=== PATIENT | female | born 1985 | race Caucasian/White ===

== ENCOUNTER 2017-04-16 04:24 | Inpatient (IN) | payer MEDICAID ==
[~2017-04-16] VITALS: Ht 160 cm; Wt 58.1 kg
[~2017-04-16 04:24] MED LIST: PREN1TAB49 PO
[2017-04-16 04:41] VITALS: BP 120/67; PULSE 100; RESP 18; Ht 160 cm; Wt 58.1 kg
[2017-04-16] MEDS ORDERED: FER325 PO (04:43)
[2017-04-16] MEDS ORDERED: AMPICILLIN 2 GM/NS (PMX) 100 ML IV ONE (05:00)
[2017-04-16] MEDS ORDERED: LIDOCAINE 1% (MPF) 30 ML INJ INJ PRN (05:00)
[2017-04-16] MEDS ORDERED: LACTATED RINGER'S 1,000 ML IV PRN (05:00)
[2017-04-16] MEDS ORDERED: METHYLERGONOVINE 0.2 MG INJ IM PRN ×2 (05:00→11:00)
[2017-04-16] MEDS ORDERED: OXYTOCIN 30 UNITS/LR 500 ML IV SCH (05:00)
[2017-04-16] MEDS ORDERED: BUTORPHANOL 2 MG INJ IV PRN (05:00)
[2017-04-16] MEDS ORDERED: MISOPROSTOL 200 MCG TAB PR PRN ×2 (05:00→11:00)
[2017-04-16] MEDS ORDERED: CARBOPROST 250 MCG INJ IM PRN ×2 (05:00→11:00)
[2017-04-16] MEDS ORDERED: MINERAL OIL LIGHT 10 ML VIAL TOP ONE (05:00)
[2017-04-16] MEDS ORDERED: OXYTOCIN 30 UNITS/LR 500 ML IV PRN ×2 (05:00→11:00)
--- NOTE | 2017-04-16 05:18 | TRIAGE ---
OB Triage Datetime Report Generated by CPN: 04/16/2017 05:18 Datetime: 04/16/2017 04:54 Labor Evaluation Frequency: 2.5-4 Monitor Mode: External Duration (sec)2399: 80-150 Quality: Moderate Pattern: Normal: <= 5 Contractions in 10 Minutes Resting Tone [place]: Relaxed Heart Rate FHR Baseline Rate: 140 Monitor Mode: External US FHR Baseline Changes: No Baseline Change Variability: Moderate 6-25 bpm Accelerations: 15X15 Decelerations: Early Category: Category I Pain Assessment Pain Scale: 5 Pain Presence: Intermittent Pain Type: Contraction Pain Location: Abdomen Pain Relief Measures: Comfort Measures Datetime: 04/16/2017 04:48 Vaginal Exam Dilatation (cms): 7.0 Effacement (%): 90 Station: -2 Membrane Status: Bulging Datetime: 04/16/2017 04:39 Assessment Type: Triage Maternal Assessment Level of Consciousness: Fully Conscious DTR's/Clonus: DTRs 2+; No Clonus Headache: Denies Blurred Vision: No Respiratory Effort: Unlabored; Regular Rhythm; Equal Expansion Breath Sounds, Left: Clear and Equal Breath Sounds, Right: Clear and Equal Nausea/Vomiting: Denies RUQ Epigastric Pain: Denies Facial Edema: None Fall Risk Assessment History of Falling: (0) No Secondary Diagnosis: (0) No Ambulatory Aid: (0) Bedrest/Nurse Assist IV Therapy: (0) No Gait: (0) Normal/Bedrest/Immobile Mental Status: (0) Oriented to Own Ability Fall Score: 0 Fall Risk Score Definition: No Risk: No action required Datetime: 04/16/2017 04:37 EGA: 38.3 Datetime: 04/16/2017 04:34 Time of Arrival: 04/16/2017 04:17 Arrived By: Wheelchair Arrived From: Home Chief Complaint: UC'S, BLEEDING Movement: Present Contractions: Regular Time Contractions Began: 04/16/2017 02:00 Contractions: Q10 Rupture of Membranes: Denies Vaginal Bleeding: Small Vaginal Discharge: Denies Recent Sexual Intercouse: Denies Abdominal Trauma: Not Applicable Patient Complaints: Contractions; Other Time Provider Notified: 04/16/2017 05:10 Provider Notified: REICHE Initial Plan: VS, EFM, SVE Datetime: 04/16/2017 04:25 Stage of : OB Triage
[2017-04-16 05:25] LABS: ADD SCAN DIFF NO
[2017-04-16 05:31] LABS: BASOPHIL # 0.1 10^3/ul (0.0-0.1); BASOPHILS % 0.4 % (0.0-2.0); EOSINOPHILS # 0.1 10^3/ul (0.0-0.5); EOSINOPHILS % 0.3 % (0.0-7.0); HEMATOCRIT 27.9 % (37.0-47.0); HEMOGLOBIN 8.6 g/dl (12.0-16.0); LYMPHOCYTES # 2.4 10^3/ul (0.8-2.9); LYMPHOCYTES % 15.4 % (15.0-51.0); MEAN CORPUSCULAR HEMOGLOBIN 21.1 pg (29.0-33.0); MEAN CORPUSCULAR HGB CONC 30.8 g/dl (32.0-37.0); MEAN CORPUSCULAR VOLUME 68.4 fl (82.0-101.0); MEAN PLATELET VOLUME 9.6 fl (7.4-10.4); MONOCYTE # 1.1 10^3/ul (0.3-0.9); MONOCYTES % 6.8 % (0.0-11.0); NEUTROPHIL # 11.4 10^3/ul (1.6-7.5); NEUTROPHILS % 73.8 % (39.0-77.0); NUCLEATED RED BLOOD CELLS% 0.3 /100WBC (0.0-0.0); PLATELET COUNT 449 10^3/UL (140-415); RED BLOOD COUNT 4.08 10^6/ul (4.20-5.40); RED CELL DISTRIBUTION WIDTH 17.5 % (11.5-14.5); WHITE BLOOD COUNT 15.5 10^3/ul (4.8-10.8)
[2017-04-16] MEDS: LACTATED RINGER'S 1,000 ML IV SCH ×2 (05:38→07:35)
[2017-04-16 05:43] LABS: INR 0.98
[2017-04-16 07:26] LABS: BARBITURATES Negative (NEGATIVE); BENZODIAZEPINES Negative (NEGATIVE); CANNABINOIDS Negative (NEGATIVE); COCAINE Negative (NEGATIVE); OPIATES Negative (NEGATIVE)
[2017-04-16] MEDS ORDERED: FENTAnyl 2MCG/ML-ROPIV 0.2% 100 ML ONE (07:51)
[2017-04-16] MEDS ORDERED: AMPICILLIN 1 GM/NS (PMX) 50 ML IV SCH (09:00)
[2017-04-16] MEDS: OXYTOCIN 30 UNITS/LR 500 ML IV SCH ×4 (10:13→14:49)
[2017-04-16] MEDS ORDERED: LACTATED RINGER'S 1,000 ML IV* SCH (10:49)
--- NOTE | 2017-04-16 10:55 | LDN ---
Date/Time of Note Date/Time of Note DATE: 04/16/17 TIME: 10:52 Delivery Summary of a viable baby boy weighing 3535 grams or 7# 13 oz, 20" long and with Apgars of 9/9. Weeks of Gestation 38w 3d Placenta Delivered: Spontaneously Meconium: none Episiotomy: No Laceration repair: Several small very superficial vaginal lacerations stitched with 2-0 chromic for hemostasis. Anesthesia type: Epidural Estimated blood loss: 250 Sponge & Needle done & correct: Yes All needle counts correct: Yes Any foreign bodies felt in the: No (vagina) Problems: Delivery Information Sex Infant Sex: male Apgars 1 Minute: 9 5 Minute: 9 Suctioning Nose & mouth suctioned at liu: Yes Delee suction performed: No Umbilical Cord Umbilical cord with: 3 Vessels Cord Blood was obtained: Yes Mother & Baby Disposition Disposition Mom & Baby to Maternity; Good: Yes Baby to NICU: No ELLEN IGLESIAS MD Apr 16, 2017 10:55
[2017-04-16] MEDS ORDERED: FENTAnyl 2MCG/ML-ROPIV 0.2% 100 ML BAG EPI SCH (11:00)
[2017-04-16] MEDS ORDERED: OXYCODONE/ASPIRIN (4.88/325) TAB PO PRN (11:00)
[2017-04-16] MEDS ORDERED: LANOLIN 7 GM TUBE TOP PRN (11:00)
[2017-04-16] MEDS ORDERED: NALOXONE (0.4 MG/ML) INJ IV PRN (11:00)
[2017-04-16] MEDS ORDERED: BENZOCAINE 20% 56 ML SPRAY TOP PRN (11:00)
--- NOTE | 2017-04-16 11:00 | HP ---
Date/Time of Note Date/Time of Note DATE: 04/16/17 TIME: 10:55 OB - History Hx of Present Free Text/Dictation 31 y.o. with an IUP at 38w 3d came in active labor dilated to 8 cm with intact membranes. Chief Complaint: Active labor. Estimated Due Date: Apr 27, 2017 : 5 Para: 4 Care: Good Care Ultrasounds: Other (Not available for review but per pt was normal.) Obstetrical Complications: None, Growth Restriction Past Family/Social History * Past Medical, Surgical, Family and Obstetric Histories reviewed with pt as the records were not available. Blood Type: O+ Rubella: unknown RPR/VDRL: Unknown GBS Status: Unknown HBsAG: Negative OB Admission Exam Vital Signs Vital Signs Vital Signs Date Time Temp Pulse Resp B/P Pulse Ox O2 Delivery O2 Flow Rate FiO2 04/16/17 04:41 98.6 100 18 120/67 Room Air Physical Exam Heart: Rhythm Normal Lungs: Clear Abdomen: WNL Extremities: Normal Cervical Dilatation: 8cm Effacement: 100% Station: -2 Membranes: Intact Amniotic Fluid: Clear Heart Rate: 140's Accelerations: Accelerations Present Decelerations: No Decelerations Varibility: Moderate Contractions on Admission: < 5 Minutes Apart Last 72 hours Lab Results CBC & BMP 04/16/17 05:10 OB Assessment/Plan Reason for admission: active labor Plan: Expectant Management ELLEN IGLESIAS MD Apr 16, 2017 10:59
[2017-04-16 12:30] VITALS: BP 118/75; PULSE 90; RESP 18
[2017-04-16] MEDS: IBUPROFEN 600 MG TAB PO SCH ×2 (13:36→17:30)
[2017-04-16 16:07] VITALS: BP 114/59; PULSE 92; RESP 20
[2017-04-16 19:55] VITALS: BP 117/65; PULSE 88; RESP 20
[2017-04-17] MEDS: IBUPROFEN 600 MG TAB PO SCH ×5 (00:07→23:50)
[2017-04-17 04:00] VITALS: BP 105/57; PULSE 75; RESP 20
[2017-04-17 08:00] VITALS: BP 111/57; PULSE 80; RESP 18
[2017-04-17 08:22] LABS: ADD SCAN DIFF NO
[2017-04-17 08:39] LABS: ABNORMAL IP MESSAGE 1; HEMATOCRIT 22.1 % (37.0-47.0); MEAN CORPUSCULAR HEMOGLOBIN 21.8 pg (29.0-33.0); MEAN CORPUSCULAR HGB CONC 31.2 g/dl (32.0-37.0); MEAN CORPUSCULAR VOLUME 69.9 fl (82.0-101.0); MEAN PLATELET VOLUME 9.8 fl (7.4-10.4); PLATELET COUNT 345 10^3/UL (140-415); RED BLOOD COUNT 3.16 10^6/ul (4.20-5.40); RED CELL DISTRIBUTION WIDTH 17.2 % (11.5-14.5)
[2017-04-17 08:51] LABS: HEMOGLOBIN 6.9 g/dl (12.0-16.0)
--- NOTE | 2017-04-17 09:50 | PN ---
Date/Time of Note Date/Time of Note DATE: 04/17/17 TIME: 09:49 OB Subjective Subjective Subjective Post normal vaginal delivery day 1 Afebrile vital signs are stable abdomen soft uterus firm lochia normal extremity normal ambulation encouraged Laboratory Tests Test 04/17/17 07:20 White Blood Count 16.610^3/ul Red Blood Count 3.1610^6/ul Hemoglobin 6.9g/dl Hematocrit 22.1% Mean Corpuscular Volume 69.9fl Mean Corpuscular Hemoglobin 21.8pg Mean Corpuscular Hemoglobin Concent 31.2g/dl Red Cell Distribution Width 17.2% Platelet Count 02658^3/UL Mean Platelet Volume 9.8fl Current Medications Medications (Trade) Dose Ordered Sig/Abril Route PRN Reason Start Time Stop Time Status Last Admin Dose Admin Lactated Ringer's 1,000 ml @ 125 mls/hr Q8H IV 04/16/17 04:57 04/16/17 10:52 DC 04/16/17 07:35 Ampicillin 100 ml @ 100 mls/hr ONCE ONCE IV 04/16/17 05:00 04/16/17 05:59 DC 04/16/17 05:39 Ampicillin (Ampicillin 1 Gm/ NS (Pmx)) 50 ml @ 100 mls/hr Q4H IV 04/16/17 09:00 04/16/17 10:52 DC Butorphanol Tartrate (Stadol) 2 mg Q2H PRN IV PAIN 04/16/17 05:00 04/16/17 10:52 DC Lidocaine 30 ml 30 ml ONCE PRN INJ EPISIOTOMY/TEARING 04/16/17 05:00 04/16/17 10:52 DC Oxytocin/Lactated Ringer's 500 ml @ 125 mls/hr ONCE -MAY REPEAT X1 IV 04/16/17 05:00 04/16/17 10:52 DC 04/16/17 10:39 Oxytocin/Lactated Ringer's 500 ml @ 125 mls/hr ONCE IV 04/16/17 05:00 04/16/17 10:52 DC Lactated Ringer's 1,000 ml @ 2,000 mls/hr Q30M PRN IV PRE-EPIDURAL BOLUS 04/16/17 05:00 04/16/17 10:52 DC Oxytocin/Lactated Ringer's 500 ml @ 0 mls/hr ONCE PRN IV For Hemorrhage Management 04/16/17 05:00 04/16/17 10:52 DC Methylergonovine Maleate (Methergine) 0.2 mg ONCE PRN IM VAGINAL BLEEDING 04/16/17 05:00 04/16/17 10:52 DC Carboprost Tromethamine (Hemabate) 250 mcg ONCE PRN IM VAGINAL BLEEDING 04/16/17 05:00 04/16/17 10:52 DC Misoprostol (Cytotec) 1,000 mcg ONCE PRN [place] VAGINAL BLEEDING 04/16/17 05:00 04/16/17 10:52 DC Mineral Oil 20 ml 20 ml ONCE ONCE TOP 04/16/17 05:00 04/16/17 05:05 [facility] 04/16/17 07:51 04/16/17 07:52 DC Naloxone HCl (Narcan) 0.2 mg Q2M PRN IV FOR RESP RATE 8 OR LESS 04/16/17 11:00 04/16/17 11:00 DC Fentanyl/ Ropivacaine 100 ml 100 ml EPIDURAL (PCEA) EPI 04/16/17 11:00 04/16/17 11:00 DC Oxytocin/Lactated Ringer's 500 ml @ 125 mls/hr Q4H IV 04/16/17 10:49 04/16/17 18:48 DC 04/16/17 13:38 Lactated Ringer's (Lr) 1,000 ml @ 125 mls/hr Q8H IV* 04/16/17 10:49 04/17/17 01:46 DC 04/16/17 17:49 Ibuprofen (Motrin) 600 mg Q6 PO 04/16/17 12:00 04/17/17 05:56 Oxycodone/Aspirin (Percodan) 1 tab Q3H PRN PO PAIN LEVEL 1-5 04/16/17 11:00 04/17/17 02:26 Benzocaine (Dermoplast [place]) 1 spray BEDSIDE MEDICATION PRN TOP HEMORRHOID/EPISIOTMY PAIN 04/16/17 11:00 04/17/17 09:11 Lanolin (Gsf-X-Tloqws) 1 applic BEDSIDE MEDICATION PRN TOP BEDSIDE FOR DAGO TO NIPPLES 04/16/17 11:00 04/16/17 13:36 Diphtheria/ Tetanus/Acell Pertussis 0.5 ml 0.5 ml ONCE ONCE IM* 04/18/17 09:00 04/18/17 09:01 Oxytocin/Lactated Ringer's 500 ml @ 0 mls/hr ONCE PRN IV For Hemorrhage Management 04/16/17 11:00 Methylergonovine Maleate (Methergine) 0.2 mg ONCE PRN IM VAGINAL BLEEDING 04/16/17 11:00 Carboprost Tromethamine (Hemabate) 250 mcg ONCE PRN IM VAGINAL BLEEDING 04/16/17 11:00 Misoprostol (Cytotec) 1,000 mcg ONCE PRN [place] VAGINAL BLEEDING 04/16/17 11:00 JASBIR STEELE MD Apr 17, 2017 09:50
[2017-04-17 10:43] LABS: EOSINOPHILS # 0.3 10^3/ul (0.0-0.5); LYMPHOCYTES # 3.3 10^3/ul (0.8-2.9); MONOCYTE # 0.5 10^3/ul (0.3-0.9); NEUTROPHIL # 12.3 10^3/ul (1.6-7.5); POLYCHROMASIA 1+
[2017-04-17 10:44] LABS: OVALOCYTES 1+
[2017-04-17 16:10] VITALS: BP 108/65; PULSE 95; RESP 14
[2017-04-17 19:45] VITALS: BP 119/62; PULSE 98; RESP 18
[2017-04-18 04:00] VITALS: BP 96/54; PULSE 82; RESP 18
[2017-04-18] MEDS: IBUPROFEN 600 MG TAB PO SCH ×2 (06:00→11:31)
[2017-04-18 08:00] VITALS: BP 100/58; PULSE 88; RESP 18
[2017-04-18] MEDS ORDERED: DIPHTH/TET/ACEL PERTUSS (ADULT) 0.5 ML VIAL IM* ONE (09:00)
[2017-04-18 13:11] LABS: WHITE BLOOD COUNT 16.6 10^3/ul (4.8-10.8)
--- NOTE | 2017-04-18 13:48 | PD.PPDC ---
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
--- NOTE | 2017-04-18 13:51 | DS ---
Date/Time of Note Date/Time of Note DATE: 04/18/17 TIME: 13:50 Discharge Summary Admission/Discharge Info Admit Date/Time Apr 16, 2017 at 04:52 Discharge Date/Time April 18, 2017 at 1350 Discharge Diagnosis Day 2 post normal vaginal delivery Patient Condition: Good Procedures Normal vaginal delivery Hx of Present Illness Term in labor Hospital Course Satisfactory uneventful Home Meds Reported Medications Ferrous Sulfate* (Ferrous Sulfate*) 325 Mg Tabec, 325 MG PO DAILY, TAB 04/16/17 Vits W-Ca,Fe,Fa(<1MG) () 1 Tab Tablet, 1 TAB PO DAILY for 7 Days, 9 Refills 07/07/11 Follow-up Plan instruction given recommended appointment in 2 weeks to be seen at the clinic Primary Care Provider Care Physician No Primary Time spent on discharge: < 30 minutes JASBIR STEELE MD Apr 18, 2017 13:51
== END 2017-04-18 15:20 | disposition home or self-care (01) | DRG 775 ==
LOC: OBT 04:24 → L-D 04:26 → OBT 04:52 → L-D 04:52 → PP1 12:01
PROVIDERS: ADMIT Obstetrics & Gynecology; ATTEND Obstetrics & Gynecology
PROC: 10E0XZZ Delivery of Products of Conception, External Approach (ICD-10-PCS; principal; 2017-04-16)
PROC: 0UQGXZZ Repair Vagina, External Approach (ICD-10-PCS; 2017-04-16)
PROC: 3E00X4Z Introduction of Serum, Toxoid and Vaccine into Skin and Mucous Membranes, External Approach (ICD-10-PCS; 2017-04-18)
DX: O71.4 Obstetric high vaginal laceration alone (principal); Z23 Encounter for immunization; Z3A.38 38 weeks gestation of pregnancy; Z37.0 Single live birth
CPT/HCPCS: 62319; 80307; 85025; 85610; 85730; 86592; 86900; 86901; 87340; 90715; G0463; J0290; J2590; J3010; J7120